=== PATIENT | male | born 1980 | race Caucasian/White ===

== ENCOUNTER 2024-02-05 12:30 | Inpatient (IN) | payer BC, SELFPAY ==
[2024-02-05] VITALS (11 sets, daily range): BP systolic 127–150; BP diastolic 85–104; BMI 28.3
--- NOTE | 2024-02-05 11:39 | EDRN ---
To culture media laboratory assistant
--- NOTE | 2024-02-05 11:40 | ED.GENMED ---
History of Present Illness
General
Chief Complaint: Chest Pain
Source: patient
Time Seen by Provider: 02/05/24 11:40
History of Present Illness
History of Present Illness:
44-year-old male presents to the emergency room complaining of chest pain. Chest pain began around 10 AM. He rates it a 5 out of 10. Patient does have a history of an WA about 9 years ago. Patient admits he is not been taking his medications.
He denies smoking. He does feel mildly short of breath.
Past History
Past History
ED Past Medical History: CAD, HTN, Hypercholesterolemia and WA
Social History
Tobacco: Non-smoker
Alcohol: None
Drug: None
Personal:
Living: with family
Family History
Family History: Early CAD
Phy Exam
Physical Exam
Physical Exam:
General: Awake, Alert, Oriented X3. No acute distress.
Vitals: unremarkable
Head: Atraumatic
Eyes: Pupils equal, EOMI
Throat: Airway intact, no exudates
Neck: Trachea midline
Lungs: Clear and equal b/l
Heart: Regular rate, no murmurs
Abd: Soft, Nontender, No pulsatile mass
Neuro: Nonfocal
Skin: Warm, dry, no rash
Extremities: pulses equal b/l, no edema
Scores
Heart Score for Chest Pain Patients
STEMI patient?: Yes
Course
Orders/Labs/Results
Orders:
Orders
02/05/24 Lunch
Cholesterol Lowering
At Your Request: Full Participation
Does patient need a safe tray?: No
Cholesterol Lowering: Sodium, 2 Gram
02/05/24 11:29
Electrocardiogram (*1) Urgent
Reason for Study: Chest Pain
EKG- Treatment ONCE
02/05/24 11:58
Complete Blood Count/With Diff Urgent
Comprehensive Metabolic Panel Urgent
Prothrombin Time Urgent
Troponin I Urgent
02/05/24 12:19
Admit Patient As Directed
Co-Sign Provider:
Level of Care: Inpatient admission
Assign to:: IVU
Physician / Group: cbc
Diagnosis: STEMI
Reason for Hospitalization: STEMI, RCA PCI
Expected length of stay greater than two midnights?: Yes
ELOS- Estimated Length of Stay in days: 2
I certify the patient meets the requirements for IP care: Yes
Electrocardiogram (*1) Urgent
Reason for Study: Other
Other Reason for Exam: s/p intervention
Comment: cbc
Code Status As Directed
Resuscitation Status: Full Code
CARDIAC REHAB CONSULT Routine
Co-Sign Provider:
Type of Cardiac Rehab Referral: Outpatient
Diagnosis: STEMI
Date of Diagnosis/Surgery: 02/05/24
Referring Provider: Dano Davenport
Acetaminophen [Tylenol] 650 mg PO Q4HPRN PRN
Activity As Directed
Activity Level: Out of Bed- Chair
Comment: bed/chair rest for 2 hours then out of bed ad nnamdi
Dust Brush Assembler Procedure As Directed
Cardiac Cath Procedure: percutaneous coronary intervention
Intake/ Output As Directed
Frequency: Per unit guidelines
Notify MD As Directed
Notify physician if: immediately for chest pain or bleeding from access site(s)
Radial Artery Hemostasis Method As Directed
Instructions:: 3 mL out at 2 hour posts placement of band
3 mL out at 2 1/2 hours post placement of band
3 mL out at 3 hours post placement of band
Off at 3 1/2 hours post placement of band
If any oozing or hemotoma occurs:: re-inflate band and call provider
Site Checks As Directed
Check access site for bleeding/hematoma: Yes
Comment: on arrival, Q15min x4, Q30min x2, Q1 hr x2, Q2 hr x2, Q4 hr or per
protocol
Vascular Checks As Directed
Location: distal to access site - pulse check
Frequency: Other
Comment: on arrival, Q15min x4, Q30min x2, Q1 hr x2, Q2 hr x2, Q4 hr or per protocol
Vital Signs As Directed
Frequency: Other
Additional Instructions:: on arrival, Q15min x4, Q30min x2, Q1 hr x2, Q2 hr x2, then Q4 hr or per unit
protocol
02/05/24 12:20
DX Deep Vein Thrombosis Video Routine
02/05/24 12:27
Case Management Consult ONCE
Case Management Consult: Other
Comment: Brilinta cost
02/05/24 12:29
Potassium Chloride [KCl] 40 meq PO NOW STA
02/05/24 12:30
0.9% Sodium Chloride 1000 ml [Nss] 1,000 ml IV PER PROTOCOL
Infusion rate in mL/kg/hr:: 1.5
Infusion rate in mL/hr:: 150
Duration of infusion (hours):: 5
02/05/24 13:00
Flush (0.9% Sodium Chloride) [Flush (Nss)] See Dose Instructions IV PER PROTOCOL
02/05/24 18:00
Troponin I Q6H
Enoxaparin Sodium [Lovenox] 40 mg SC QPM
02/05/24 20:00
Ticagrelor [Brilinta] 90 mg PO BID
02/05/24 22:00
Ezetimibe [Zetia] 10 mg PO HS
Rosuvastatin Calcium [Crestor] 40 mg PO HS
02/06/24 00:00
Troponin I Q6H
02/06/24 06:00
Echo 2D MMode Color/Doppler IN AM
Reason for Study: STEMI
Comment: Guidera
Electrocardiogram (*1) IN AM
Reason for Study: Other
Other Reason for Exam: s/p intervention
Comment: cbc
Basic Metabolic Panel IN AM
Cardiovascular Evaluation IN AM
Complete Blood Count/No Diff IN AM
Glycohemoglobin (HgbA1c) Routine
Troponin I Q6H
02/06/24 08:00
Aspirin Chewable [Low Strength Aspirin] 81 mg PO DAILY
Lisinopril [Zestril] 5 mg PO DAILY
Metoprolol Xl [Toprol Xl] 50 mg PO DAILY
02/07/24 06:00
Electrocardiogram (*1) IN AM
Reason for Study: Other
Other Reason for Exam: s/p intervention
Comment: cbc
Basic Metabolic Panel IN AM
Complete Blood Count/No Diff IN AM
Abnormal Lab Results
02/05/24 02/05/24 02/05/24
11:56 11:58 12:03
Hgb 12.9 L g/dL
(13.0-18.0)
Hct 38.6 L %
(39.0-52.0)
Absolute Monos (auto) 0.8 H 10^3/uL
(0.1-0.6)
Monocytes % 11.7 H %
(1.7-9.3)
Potassium 3.4 L mmol/L
(3.5-5.1)
Creatinine 0.6 L mg/dL
(0.7-1.3)
Glucose 118 H mg/dl
(70-99)
Troponin I 0.178 H* ng/ml
POC ACT Low Range 195 H Seconds > 397 H Seconds
(116-155) (116-155)
02/05/24 11:58
02/05/24 11:58
Vital Signs
Initial and Last Documented VS:
Initial Vital Signs
Pulse
79
02/05/24 12:30
Last Documented Vital Signs
Temp Pulse Resp BP Pulse Ox
97.5 F 86 18 131/85 100
02/05/24 12:54 02/05/24 13:45 02/05/24 12:54 02/05/24 13:30 02/05/24 12:54
MDM/Problems Addressed
Differential Diagnosis Includes:
Acute WA, chest wall pain, GERD
MDM/Problems Addressed:
EKG shows ST elevation in leads II, III and aVF consistent with an inferior wall WA. STEMI alert called. Patient received aspirin, Brilinta which he chewed and swallowed. 5000 units of heparin given. Dust Brush Assembler ready for the patient and he was
taken immediately to the Dust Brush Assembler after receiving these medications. Case discussed with Dr. Baker who is the construction rigger on-call.
Chronic conditions affecting care: HTN and CAD
Acute Exacerbation and/or Progression of Chronic Illness: CAD
*Pulse Oximetry
Patient hypoxic: no
*EKG
Interpreted by ED Provider?: Yes
Interpretation: abnormal
Heart Rate: 57
Rate: bradycardiac
Rhythm: sinus
Ischemia: ST elevation (II, III, avf)
*Factory Worker Interpretation
Rate: bradycardiac
Interpretation: normal
Rhythm: sinus
*Critical Care Note
Total Time (30-74mins, 75-104mins- exclusive of procedures): 15 min
ED Attending Note
-
Portions of this chart may have been created with voice recognition software.� Occasional wrong word or��sound alike� substitutions may have occurred due to the inherent limitations of voice recognition software.
Discharge Plan
Departure
Patient Disposition: Admit
Date of Disposition: 02/05/24
Time of Disposition: 11:47
Admit to: cath lab tech
Presentation/result/management discussed w/ accepting MD/DO: Hospitalist
Condition: Serious
Discharge Problem:
Acute WA
Interventions
Interventions:
*Risk Screen - Suicide Last Done: 02/05/24 13:27
*ED COVID-19 Vaccine History Last Done: 02/05/24 13:27
*Nursing Disposition Last Done: 02/05/24 12:05
ED- Cardiac Assessment Last Done: 02/05/24 11:32
Discharge Date and Time
Discharge Date/Time: 02/05/24 12:06
[2024-02-05 12:02] LABS: ACT-LR - POC 195 Seconds (116-155)
[2024-02-05 12:09] LABS: % Basophils 0.8 % (0-2); % Eosinophils 1.9 % (0-6); % Immature Granulocytes 0.3 % (0-0.5); % Lymphocytes 25.4 % (20.5-51.1); % Monocytes 11.7 % (1.7-9.3); % Neutrophils 59.9 % (42.2-75.2); Absolute Basophils 0.1 10^3/uL (0-0.2); Absolute Eosinophils 0.1 10^3/uL (0-0.7); Absolute Lymphocytes 1.8 10^3/uL (1.2-3.4); Absolute Monocytes 0.8 10^3/uL (0.1-0.6); Absolute Neutrophils 4.3 10^3/uL (1.4-6.5); Hematocrit 38.6 % (39.0-52.0); Hemoglobin 12.9 g/dL (13.0-18.0); Mean Corp Hgb Conc. 33.4 g/dL (33.0-37.0); Mean Corpuscular Hgb 27.3 pg (27.0-31.0); Mean Corpuscular Volume 81.6 fL (80.0-94.0); Mean Platelet Volume 9.3 fL (7.4-10.4); Nucleated Red Blood Cells % 0 % (-); Platelet Count 247 10^3/uL (130-400); Red Blood Cell Count 4.73 10^6/uL (4.70-6.10); White Blood Cell Count 7.2 10^3/uL (4.8-10.8)
[2024-02-05 12:21] LABS: INR 1.08; PT 13.8 Sec (11.4-14.6)
[2024-02-05 12:22] LABS: ALT (SGPT) 19 U/L (0-50); AST (SGOT) 25 U/L (17-59); Albumin 4.1 g/dl (3.5-5.0); Alkaline Phosphatase 92 U/L (38-126); Blood Urea Nitrogen 13 mg/dl (9-20); Carbon Dioxide 27 mmol/L (22-30); Chloride 105 mmol/L (98-107); Glucose 118 mg/dl (70-99); Potassium 3.4 mmol/L (3.5-5.1); Sodium 137 mmol/L (135-145); Total Bilirubin 0.6 mg/dl (0.2-1.3); Total Protein 7.5 g/dl (6.3-8.2); eGFR > 60.00
--- NOTE | 2024-02-05 12:34 | HPS.HSE ---
Addendum entered and electronically signed by Marcelo Rodriguez MD 02/05/24 13:14:
Patient seen and examined. He presents with substernal chest discomfort for the past [address] elevation myocardial infarction. He has been noncompliant with all medications including aspirin. Emergent angiography demonstrates
thrombotic occlusion of the proximal RCA at the proximal edge of the previously stented segment (2014). Successful revascularization with angioplasty followed by placement of 3.5 x 23 Xience BRENT with amish of SUNG grade III flow. There is a
70% lesion in the distal RCA just proximal to the PDA takeoff. This was not treated but can be stented if he has residual anginal symptoms. I did not wish to treat anything other than the culprit lesion given his history of noncompliance with
necessary antiplatelet therapy.
Original Note:
Family Physician
-
Family Physician: Hoang Hurtado MD
CDY: Frank Davenport MD
Chief Complaint
-
Chest pain
History of Present Illness
44 y/o white male, PMH sig for cardiac arrest with RCA PCI in 2014, and pericarditis in 2016 with patent stent at the time. Now presents to ER with acute onset chest pain starting approx 1 hour prior to arrival. Initial EKG with inferior ST
elevations. Given aspirin 324mg, brilinta 190mg and heparin 4000u and brought emergently to the construction craft laborer. RCA with acute stent thrombosis, s/p angioplasty and BRENT. Pt admits to not taking meds including aspirin for some time and has not been seen in
cardiology office since 2020.
Medical History
Past Medical History
Past Medical History: Reports CAD (Cardiac arrest/WV with RCA PCI (2014)), HTN and Hypercholesterolemia
Additional Past Medical History:
pericarditis (2017)
Past Surgical History: Reports None
Social History
Tobacco: Non-smoker
Alcohol: Occasional
Drug: None
Personal:
Living: With Family
Employment: Employed
Family History
Family History: Early CAD and Hypertension
Allergies / Home Medications
Allergies reflects when Allergies were last updated in [facility].
Home Medications with original date entered in [facility]
Allergy/Medication List:
ALLG: shellfish
MEDS: HE HAS STOPPED TAKING ALL MEDS
aspirin 81mg/daily
escitalopram 10mg/daily
zetia 10mg/daily
lisinopril 5mg/daily
metoprolol succinate 50mg/daily
rosuvastatin 40mg/daily
nitrostat prn CP
Review of Systems
-
History Source: Patient
A 12 point ROS was completed and negative except as noted: Yes
Respiratory: Reports Other (mildly dyspneic)
Cardiac: Reports Chest Pain (03/15)
Physical Exam
Physical Exam
General: Other (Deferred d/t urgent nature of cath)
Laboratory Results
-
02/05/24 11:58
02/05/24 11:58
Laboratory Results
PT 13.8 Sec (11.4-14.6) 02/05/24 11:58
INR 1.08 02/05/24 11:58
Total Bilirubin 0.6 mg/dl (0.2-1.3) 02/05/24 11:58
AST 25 U/L (17-59) 02/05/24 11:58
ALT 19 U/L (0-50) 02/05/24 11:58
Alkaline Phosphatase 92 U/L (38-126) 02/05/24 11:58
Data Reviewed
-
Medical Tests (Nuc Med, Echo, EKG etc): Image Personally Visualized and interpreted, Report Reviewed by me and Discussed with Physician
Lab Data: Labs Reviewed by me
Old Records: Reviewed
Impression/Plan
-
44 y/o white male, PMH sig for cardiac arrest with RCA PCI in 2014, and pericarditis in 2017 with patent stent at the time. Now presents to ER with acute onset chest pain starting approx 1 hour prior to arrival. Initial EKG with inferior ST
elevations. Given aspirin 324mg, brilinta 190mg and heparin 4000u and brought emergently to the construction craft laborer. RCA with acute stent thrombosis, s/p angioplasty and BRENT. Pt admits to not taking meds including aspirin for some time and has not been seen in
cardiology office since 2020.
Last echo 04/2021 with nml LVSF, no WMA, EF 55-60%, no sig valvular disease.
IMPRESSION/PLAN:
Inferior STEMI
Acute RCA stent thrombosis, s/p angioplasty and BRENT
admit IVU/monitor tele
1st trop 0.178- trend troponin to peak
echo in AM
DAPT w/asa, brilinta- CM to check cost
resume metoprolol 50/d, lisinopril 5mg/d
cardiac rehab consult
HLD- check lipid profile
resume rosuvastatin 40/d, zetia 10/d
HTN- monitor trends
Hypokalemia- K 3.4- replaced- check in AM
Elevated glucose- will check HgbA1C in AM
Non compliance- importance of medications/cardiology followup stressed with pt/
[2024-02-05 12:46] LABS: Troponin I 0.178 ng/ml
--- NOTE | 2024-02-05 12:46 | ITS.CL.CATH ---
Correctional Nurse - Catheterization
Cardiac Catheterization
Procedure Report:
CARDIAC CATHETERIZATION REPORT
Date of Procedure: 02/05/2024
Referring: Marty Ely MD ([facility])
Indication: Inferior STEMI of 2 hours duration. Patient with history RCA stent ([facility]) in 2014 and has been noncompliant with aspirin and all other cardiac medications
HEMODYNAMIC DATA
AO: 143/94
LV: 143/17
LEFT VENTRICULOGRAPHY: Inferior akinesis with EF 50%. There is hyperdynamic movement of the noninfarct segments
CORONARY ANGIOGRAPHY
Dominance: Right
Left Main: Normal
LAD: 30% mid LAD stenosis with otherwise trivial luminal irregularities in the LAD system
Circumflex: Mild luminal irregularities
RCA: The RCA is occluded 10 mm distal to its takeoff at the start of the previously stented segment. There is SUNG grade 0 flow distal to the site of occlusion. There is very faint incomplete collateralization of the distal RCA vessels via left
circumflex artery
Angioplasty: At the conclusion the diagnostic study, the patient underwent RCA intervention. Heparin was used for anticoagulation. Since he has not been taking any antiplatelet therapy, we opted to give a double bolus of Integrilin with no
infusion. Brilinta and aspirin were both given in the emergency department. Additional heparin was given as needed to keep the ACT greater than 225. A 6 Macanese JR4 guide catheter was used. A Hi-Torque floppy wire was easily passed through the
occluded proximal RCA and positioned in the distal vessel. Normal flow was restored with a 3.0 x 15 trek inflated to 12 jean within the previously stented segment. There is focal 70% distal RCA stenosis noted. The culprit lesion was then stented
with a 3.5 x 23 Xience BRENT deployed at 17 jean. The angiographic result was outstanding with no residual stenosis and normal SUNG grade III flow to the PDA and posterolateral branches of the RCA. I opted not to post dilate the stent in order to
minimize the chance of distal embolization of thrombus. The final angiographic result was outstanding. There were no procedural complications.
Closure Device: None-the procedure was performed via the right radial artery. The Palmer's test was normal prior to the procedure.
Radiation (mGy): 246
DAP (cm2.Gy): 30.7
Fluoroscopy time: 4.4 minutes
CONCLUSIONS
1: Acute inferior STEMI x 2 hours due to very late stent thrombosis (9 years) in the setting of noncompliance with aspirin
2: Inferior akinesis with EF 50%
3. Single-vessel CAD with proximal RCA in-stent thrombotic occlusion. There is 70% distal RCA stenosis just proximal to the PDA origin
4. Successful angioplasty and stenting of proximal RCA in-stent occlusion with placement of 3.5 x 23 Xience renetta point BRENT
5. Recommend dual antiplatelet therapy for 12 months and continued risk factor modification efforts. The patient and his (who is an ER nurse at ) have been counseled that his infarction is due to noncompliance with aspirin therapy and that
failure to comply with dual antiplatelet therapy for 12 months followed by aspirin monotherapy thereafter would likely result in recurrent stent thrombosis which at times is fatal
Copy to: Dano Davenport MD, Hoang Hurtado MD
Marcelo Rodriguez MD, [facility]
[2024-02-05] MEDS: KCL 40 MEQ PO (12:59)
[2024-02-05] MEDS: NSS 1000 IV (13:00)
--- NOTE | 2024-02-05 13:11 | PTCARENOTE ---
Received patient from the irrigation laborer after stenting of re-stenosed RCA. Oriented to room and plan of care. Radial band in place right wrist, fingers cool but pulse palpable and pulse ox of 100% on RA. at the bedside and updated, call mina in
reach.
[2024-02-05 13:25] LABS: ACT-LR - POC > 397 Seconds (116-155)
--- NOTE | 2024-02-05 14:02 | CM ---
Reviewed chart. Met with Mr. Zhang to review discharge plans. He states prior to admission he resides with his spouse and two children in a two story home with one step to enter. He states he has a full flight of steps to get to bedroom/full
bathroom. He states he has a powder room on the first floor. He states prior to admission he was independent with ambulation and adls. He states he does not have any DME in the home. He states he has a prescription plan and uses [facility] on [address].
Telephone call to his pharmacy benefit,([phone]) to check on co-pay fro Brilinta 90 mg po bid. His co-pay for one month would be $70.00 and for 90 day supply would be $140.00 . He has commercial insurance and can use the $5.00 coupon. Placed
the coupon in his red discharge folder. Telephone all to [facility] on [address] to check if they have Brilinta 90 mg po in stock. [facility] has it in stock. Medical work-up in progress. The discharge plan is to return home with his family when
medically stable.
[2024-02-05] MEDS: LOVENOX 40 MG SC (18:00)
[2024-02-05 18:48] LABS: Troponin I 0.739 ng/ml
--- NOTE | 2024-02-05 19:23 | PTCARENOTE ---
Patient reports no pain, remains in SR on the monitor without ectopy. BP running in the 130's/90's. Patient did not take any of his antihypertensive meds today, notified Sandeep Johnston NP- to continue to monitor and resume meds as scheduled in AM.
[2024-02-05] MEDS: ZETIA 10 MG PO (22:06)
[2024-02-05] MEDS: BRILINTA 90 MG PO (22:06)
[2024-02-05] MEDS: CRESTOR 40 MG PO (22:06)
--- NOTE | 2024-02-05 23:28 | PTCARENOTE ---
R radial dressing CDI- Site eccy around the dressing + pulse 0-10 CP.
[2024-02-06 05:14] VITALS: BP 125/98
[2024-02-06 05:40] LABS: Hematocrit 33.4 % (39.0-52.0); Hemoglobin 11.5 g/dL (13.0-18.0); Mean Corp Hgb Conc. 34.4 g/dL (33.0-37.0); Mean Corpuscular Hgb 27.4 pg (27.0-31.0); Mean Corpuscular Volume 79.5 fL (80.0-94.0); Mean Platelet Volume 9.2 fL (7.4-10.4); Platelet Count 186 10^3/uL (130-400); Red Cell Dist. Width 14.1 % (11.5-14.5); White Blood Cell Count 8.2 10^3/uL (4.8-10.8)
[2024-02-06 06:09] LABS: Blood Urea Nitrogen 10 mg/dl (9-20); Calcium 8.7 mg/dl (8.4-10.2); Carbon Dioxide 24 mmol/L (22-30); Chloride 108 mmol/L (98-107); Estimated Creatinine Clearance > 125 ml/min; Glucose 86 mg/dl (70-99); HDL Cholesterol 36 mg/dl; LDL Cholesterol, Calculated 204 mg/dl; Potassium 3.5 mmol/L (3.5-5.1); Sodium 136 mmol/L (135-145); Total Cholesterol 254 mg/dl (50-199); Triglyceride 70 mg/dl (10-149); Very Low Density Lipoprotein 14 mg/dl (0-30); eGFR > 60.00
--- NOTE | 2024-02-06 07:25 | W.PN.CD ---
Today's Communication / Plan
-
ambulate. shower
Impression / Plan
-
Acute inferior STEMI:
- Peak trop only 2.7
- S/P prox RCA PCI for very late (9yrs) in stent thrombosis. Completely preventable event caused by noncompliance with ASA. He understands this WILL happen again if he does not take meds as prescribed
- No recurrent CP, no CHF, telem with one triplet yesterday
- Ambulate today. OK to shower
- Continue monitoring him. Home tomorrow if does well today
Dyslipidemia
- LDL 204
- Crestor 40. Pt educated his lipids will remain horrific if he does not take statin as diet a minor contributor
Anemia
- Hb 12.9. This appears chronic looking back to 2017
- Will order Fe, TIBC, ferritin and B12 for tomorrow AM
Out pt development intern is Issac
Physical Exam
Vital Signs/Labs
Vital Signs
Temp Pulse Resp BP Pulse Ox
98.1 F 86 18 125/98 98
02/05/24 23:24 02/06/24 05:14 02/05/24 23:24 02/06/24 05:14 02/05/24 23:24
02/05/24 02/06/24 02/07/24
06:59 06:59 06:59
Actual Weight 175 lb 6.044 oz
02/06/24 05:25
02/06/24 05:25
PT 13.8 Sec (11.4-14.6) 02/05/24 11:58
INR 1.08 02/05/24 11:58
Triglycerides 70 mg/dl (10-149) 02/06/24 05:25
LDL Cholesterol, Calc 204 mg/dl 02/06/24 05:25
VLDL Cholesterol, Calc 14 mg/dl (0-30) 02/06/24 05:25
HDL Cholesterol 36 mg/dl 02/06/24 05:25
LAB Results
02/05/24 02/05/24 02/05/24
11:58 18:05 23:08
Troponin I 0.178 H* 0.739 H* D 2.180 H* D
02/06/24
05:25
Troponin I 2.770 H* D
Physical Exam
Constitutional: No acute distress
EENT: Anicteric
Cardiovascular: Rhythm & rate is regular and Murmur/rub/gallop absent
Respiratory: Lungs clear to auscul.
Neuro/Psych: AO x 3 and Motor deficits absent
Other: Cath Site (clean and dry)
Data Reviewed
-
Date of Service: February 06, 2024
[2024-02-06 07:28] VITALS: BP 140/91
[2024-02-06 08:36] LABS: Glycohemoglobin (HgbA1c) 5.3 % (4.0-5.6)
[2024-02-06] MEDS: LOW STRENGTH ASPIRIN 81 MG PO (09:05)
[2024-02-06] MEDS: ZESTRIL 5 MG PO (09:05)
[2024-02-06] MEDS: BRILINTA 90 MG PO ×2 (09:05→19:12)
[2024-02-06] MEDS: TOPROL XL 50 MG PO (09:05)
[2024-02-06 12:00] VITALS: BP 124/81
[2024-02-06 15:36] VITALS: BP 113/70
[2024-02-06] MEDS: LOVENOX 40 MG SC (18:28)
[2024-02-06 19:04] VITALS: BP 102/67
--- NOTE | 2024-02-06 21:57 | PTCARENOTE ---
Pt rec'd at change of shift ambulating in room. No c/o pain. Right radial site with DDI, ecchymotic around puncture site,soft. sinus on telemetry.
[2024-02-06 22:28] VITALS: BP 119/74
[2024-02-06] MEDS: ZETIA 10 MG PO (22:28)
[2024-02-06] MEDS: CRESTOR 40 MG PO (22:28)
[2024-02-07 03:30] VITALS: BP 116/76
[2024-02-07 04:11] LABS: Hematocrit 36.4 % (39.0-52.0); Mean Corpuscular Volume 81.8 fL (80.0-94.0); Mean Platelet Volume 9.4 fL (7.4-10.4); Platelet Count 198 10^3/uL (130-400); Red Blood Cell Count 4.45 10^6/uL (4.70-6.10); Red Cell Dist. Width 14.1 % (11.5-14.5); White Blood Cell Count 7.4 10^3/uL (4.8-10.8)
[2024-02-07 04:39] LABS: Blood Urea Nitrogen 12 mg/dl (9-20); Calcium 9.1 mg/dl (8.4-10.2); Carbon Dioxide 23 mmol/L (22-30); Chloride 107 mmol/L (98-107); Estimated Creatinine Clearance > 125 ml/min; Glucose 81 mg/dl (70-99); Iron 66 ug/dl (49-181); Potassium 3.5 mmol/L (3.5-5.1); Sodium 136 mmol/L (135-145); eGFR > 60.00
[2024-02-07 04:48] LABS: Percent Saturation 27 % (20-50); Total Iron Binding Capacity 243 ug/dl (261-462)
[2024-02-07 05:11] LABS: Ferritin 28.3 ng/ml (17.9-464.0)
[2024-02-07 05:25] LABS: Vitamin B12 424 pg/ml (239-931)
[2024-02-07 07:45] VITALS: BP 138/80
[2024-02-07] MEDS: ZESTRIL 5 MG PO (07:57)
[2024-02-07] MEDS: BRILINTA 90 MG PO (07:57)
[2024-02-07] MEDS: TOPROL XL 50 MG PO (07:57)
[2024-02-07] MEDS: LOW STRENGTH ASPIRIN 81 MG PO (07:57)
--- NOTE | 2024-02-07 08:10 | PTCARENOTE ---
Pt received from carburetor mechanic RN. AAOx3, resting in bed. NSR on mental health professional. VSS. R radial dressing CDI. Site ecchymotic, no hematoma noted. Neurovascular checks WDL. Pt without complaint at this time. Reinforced importance of med compliance s/p
angioplasty and BRENT. Pt verbalized understanding of education. Assessment documented.
--- NOTE | 2024-02-07 08:14 | W.PN.CARDCBS ---
Addendum entered and electronically signed by Dano Davenport MD 02/07/24 08:32:
I saw and examined the patient.
The PLASTIC BUBBLE PACKER's note was reviewed and I agree with the note.
Comment: Tele fine, cath site very good. Reviewed adherence with med rx and followup. Mild LV dysfxn. LV was normal EF by echo 04/2021!! Plan max med rx in next 3 mo and then repeat echo.
Original Note:
Today's Communication / Plan
-
stable for d/c home today
Impression / Plan
-
Acute inferior STEMI:
- Peak trop only 2.7
- S/P prox RCA PCI for very late (9yrs) in stent thrombosis. Completely preventable event caused by noncompliance with ASA. He understands this WILL happen again if he does not take meds as prescribed
- No recurrent CP, no CHF, tele no further ectopy
-Echo EF 40-45%, anteroseptal and inferoseptal HK, mild LVH
- DAPT ASA/Brilinta, resume all prior meds
- cardiac rehab
-Will need f/u Echo in 3-6 mo post reperfusion
-home today
Dyslipidemia
- LDL 204
- Crestor 40 and zetia 10. Pt educated his lipids will remain horrific if he does not take statin as diet a minor contributor
Anemia
- Hb 12.9. This appears chronic looking back to 2017
-MCV low/normal, iron studies normal except TIBC, will follow up with outpt cbc in 3mo
f/u Dr. Davenport in 2-4 weeks
Progress Note - Food Quality Tester
Subjective
Date of Service: February 07, 2024
no cp, sob
Objective
Labs:
02/07/24 03:42
02/07/24 03:42
Labs
Hgb 12.0 g/dL (13.0-18.0) L 02/07/24 03:42
Hct 36.4 % (39.0-52.0) L 02/07/24 03:42
Plt Count 198 10^3/uL (130-400) 02/07/24 03:42
PT 13.8 Sec (11.4-14.6) 02/05/24 11:58
INR 1.08 02/05/24 11:58
Sodium 136 mmol/L (135-145) 02/07/24 03:42
Potassium 3.5 mmol/L (3.5-5.1) 02/07/24 03:42
BUN 12 mg/dl (9-20) 02/07/24 03:42
Creatinine 0.6 mg/dL (0.7-1.3) L 02/07/24 03:42
Glucose 81 mg/dl (70-99) 02/07/24 03:42
Troponins
02/05/24 02/05/24 02/05/24
11:58 18:05 23:08
Troponin I 0.178 H* 0.739 H* D 2.180 H* D
02/06/24 02/06/24
05:25 16:23
Troponin I 2.770 H* D 1.550 H*
Vital Signs and I&O:
Vital Signs
Temp Pulse Resp BP Pulse Ox
97.9 F 67 20 138/80 99
02/07/24 07:43 02/07/24 04:00 02/07/24 07:43 02/07/24 07:57 02/07/24 07:43
Vital Signs
Temp Pulse Resp BP Pulse Ox
97.9 F 67 20 138/80 99
02/07/24 07:43 02/07/24 04:00 02/07/24 07:43 02/07/24 07:57 02/07/24 07:43
Intake & Output
02/05/24 02/06/24 02/07/24 02/08/24
06:59 06:59 06:59 06:59
Intake Total 1470 / 1470
Output Total 0 / 1899
Balance -430 / -430
Physical Exam
Physical Exam
NAD, AOX3
S1, S2, RRR
CTAB, non labored
SNTND Bsx4
R rad site c/d/i
--- NOTE | 2024-02-07 09:01 | W.DS.TRANS ---
DC Summary - Tool Grinder Operator Surface
-
Discharge Instructions:
Discharge Diagnosis/Procedures STEMI, s/p angioplasty and stent to Right
Coronary artery
Diet Low Cholesterol
Driving Restrictions As prior to admission
Bathing Restrictions OK to Shower
Other Services Cardiac Rehab
Instructions:
Stand-Alone Forms: DC Instructions- Cath/EP Lab
Changes to Home Medications: Yes
Discharge Medications:
DC Medications w/original date entered in [facility]
ezetimibe 10 mg tablet (Zetia) 10 mg PO HS High Cholesterol 07/06/17
lisinopril 5 mg tablet 5 mg PO DAILY Blood Pressure 07/06/17
rosuvastatin 40 mg tablet 40 mg PO HS High Cholesterol 07/06/17
metoprolol succinate 50 mg tablet,extended release 24 hr 50 mg PO DAILY #30 tabs 10/23/17
aspirin 81 mg chewable tablet 81 mg PO DAILY Blood Clot Prevention/Tx 02/05/24
nitroglycerin 0.4 mg sublingual tablet (Nitrostat) 0.4 mg sublingual Q5M PRN chest pain #25 tabs 02/06/24
ticagrelor 90 mg tablet (Brilinta) 90 mg PO BID #180 tabs 02/06/24
Home Medication Changes
new to brilinta and nitro, resumed all previous meds he stopped
Pending Results: No
--- NOTE | 2024-02-07 09:32 | CM ---
CM following for DC planning needs.
Plan for DC to home today. There are no identified DC needs.
[2024-02-07 11:48] VITALS: BP 122/69
== END 2024-02-07 12:38 | disposition home or self-care (01) | DRG 321 ==
LOC: IVU 12:30
PROVIDERS: Nurse Practitioner; Nurse Practitioner Adult Health; ADMITTING PHYSICIAN Internal Medicine Cardiovascular Disease; EMERGENCY PHYSICIAN Emergency Medicine
PROC: B2151ZZ Fluoroscopy of Left Heart using Low Osmolar Contrast (ICD-10-PCS; 2024-02-05)
PROC: B2111ZZ Fluoroscopy of Multiple Coronary Arteries using Low Osmolar Contrast (ICD-10-PCS; 2024-02-05)
PROC: 027034Z Dilation of Coronary Artery, One Artery with Drug-eluting Intraluminal Device, Percutaneous Approach (ICD-10-PCS; 2024-02-05)
PROC: 4A023N7 Measurement of Cardiac Sampling and Pressure, Left Heart, Percutaneous Approach (ICD-10-PCS; 2024-02-05)
DX: I97.190 Other postprocedural cardiac functional disturbances following cardiac surgery (principal); I21.A9 Other myocardial infarction type; T82.867A Thrombosis due to cardiac prosthetic devices, implants and grafts, initial encounter; E78.00 Pure hypercholesterolemia, unspecified; I10 Essential (primary) hypertension; I25.10 Atherosclerotic heart disease of native coronary artery without angina pectoris; Y83.1 Surgical operation with implant of artificial internal device as the cause of abnormal reaction of the patient, or of later complication, without mention of misadventure at the time of the procedure; Y71.2 Prosthetic and other implants, materials and accessory cardiovascular devices associated with adverse incidents; D64.9 Anemia, unspecified; E87.6 Hypokalemia; R73.9 Hyperglycemia, unspecified; I25.2 Old myocardial infarction; Z91.199 Patient's noncompliance with other medical treatment and regimen due to unspecified reason; Z91.148 Patient's other noncompliance with medication regimen for other reason; Z95.5 Presence of coronary angioplasty implant and graft; Z82.49 Family history of ischemic heart disease and other diseases of the circulatory system; Z86.79 Personal history of other diseases of the circulatory system
CPT/HCPCS: 80048; 80053; 80061; 82607; 82728; 83036; 83540; 83550; 84484; 85025; 85027; 85347; 85610; 93005; 93306; 93458; 99285; C1725; C1769; C1874; C1894; C9606; J1327; Q9967

== ENCOUNTER 2025-03-11 21:13 | Emergency (ER) | payer BC, SELFPAY ==
[2025-03-11 21:15] VITALS: BP 120/75
[2025-03-11 21:37] LABS: % Basophils 1.1 % (0-2); % Eosinophils 2.2 % (0-6); % Immature Granulocytes 0.2 % (0-0.5); % Lymphocytes 29.7 % (20.5-51.1); % Monocytes 11.7 % (1.7-9.3); % Neutrophils 55.1 % (42.2-75.2); Absolute Basophils 0.1 10^3/uL (0-0.2); Absolute Eosinophils 0.2 10^3/uL (0-0.7); Absolute Lymphocytes 2.6 10^3/uL (1.2-3.4); Absolute Neutrophils 4.9 10^3/uL (1.4-6.5); Hematocrit 43.3 % (39.0-52.0); Hemoglobin 14.5 g/dL (13.0-18.0); Mean Corp Hgb Conc. 33.5 g/dL (33.0-37.0); Mean Corpuscular Hgb 27.7 pg (27.0-31.0); Mean Corpuscular Volume 82.8 fL (80.0-94.0); Mean Platelet Volume 9.4 fL (7.4-10.4); Nucleated Red Blood Cells % 0 % (-); Platelet Count 306 10^3/uL (130-400); Red Blood Cell Count 5.23 10^6/uL (4.70-6.10); Red Cell Dist. Width 14.4 % (11.5-14.5); White Blood Cell Count 8.8 10^3/uL (4.8-10.8)
[2025-03-11] MEDS: ZOFRAN 4 MG IV (21:40)
[2025-03-11] MEDS: NSS 1000 IV ×2 (21:46→22:53)
[2025-03-11] MEDS: TORADOL 15 MG IV (21:46)
[2025-03-11 21:48] LABS: Lactic Acid 1.4 mmol/L (0.7-2.0)
[2025-03-11 21:50] LABS: ALT (SGPT) 23 U/L (0-50); AST (SGOT) 24 U/L (17-59); Albumin 4.9 g/dl (3.5-5.0); Alkaline Phosphatase 95 U/L (38-126); Blood Urea Nitrogen 32 mg/dl (9-20); Calcium 9.8 mg/dl (8.4-10.2); Carbon Dioxide 28 mmol/L (22-30); Chloride 99 mmol/L (98-107); Glucose 135 mg/dl (70-99); Potassium 3.9 mmol/L (3.5-5.1); Sodium 138 mmol/L (135-145); Total Protein 8.2 g/dl (6.3-8.2); eGFR > 60.00
[2025-03-11 21:51] LABS: Lipase 210 U/L (23-300)
[2025-03-11 22:04] VITALS: BMI 28.0
[2025-03-11 22:06] VITALS: BP 128/80
--- NOTE | 2025-03-11 22:32 | ED.GENMED ---
History of Present Illness
General
Chief Complaint: Abdominal Pain
Source: patient and family
Exam Limitations: none
Time Seen by Provider: 03/11/25 22:24
Nursing documentation reviewed up to this point in time: agreed with
History of Present Illness
History of Present Illness:
This a pleasant 45-year-old male presents with left-sided flank pain that began approximately 8 PM tonight. Approxi-1/2 hours prior to arrival he felt this sharp pain that was reminiscent of previous kidney stone. He did have some nausea
associated with the increased pain. Denies fever, chills, chest pain, or shortness of breath. 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
Vital signs are stable. Patient not hypoxic
Nursing note reviewed. I agree with nursing documentation up to this point in time.
Home Meds and allergies reviewed.
NUMBER AND COMPLEXITY OF PROBLEMS ADDRESSED AT THE ENCOUNTER
� Chronic conditions affecting care: Hypertension, hyperlipidemia, previous VT, pericarditis, kidney stones
� Acute Exacerbation and/or Progression of Chronic Illness:
� Differential Diagnosis includes: Kidney stone, colitis, UTI
AMOUNT AND/OR COMPLEXITY OF DATA TO BE REVIEWED AND ANALYZED
I performed an independent evaluation of the following and my interpretation is:
EKG: EKG shows sinus bradycardia rate of 47 with normal intervals, normal axis. No evidence of acute ischemia present. When compared with previous EKG dated February 07, 2024, there is improvement with overall morphology.
Pulse Ox: Not Hypoxic, 99% on room air
Bread Dough Mixer: Sinus Rhythm rate of [address] IMPRESSION:
1. MILD LEFT HYDROURETERONEPHROSIS secondary to a 3 mm partially obstructing calculus in the distal left ureter.
2. 5 mm nonobstructing left lower pole intrarenal calculus.
3. Moderate calcific atherosclerotic plaque in the abdominal aorta.
4. 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
5. 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
X-rays:
Ultrasound:
Laboratory Studies:
Other:
Review of other/old records:
Clinical information was obtained by an independent historian:
Prescriptions/Medications Considered but not given:
Further testing considered but not performed:
RISK OF COMPLICATIONS AND/OR MORBIDITY OR MORTALITY OF PATIENT MANAGEMENT
Social determinants of health affecting care: Good Social Support
Discussion with other providers:
Escalation of care including admission/observation vs risk of discharge considered: After being observed in the emergency department, patient is
CRITICAL CARE NOTE:
Total Time (exclusive of procedures):
Update:
Past History
Past History
ED Past Medical History: CAD, HTN, Hypercholesterolemia and VT
Social History
Tobacco: Non-smoker
Alcohol: None
Drug: None
Personal:
Living: with family
Family History
Family History: Early CAD
Phy Exam
General Physical Exam
General Presentation: well appearing and mild distress (After pain medicine)
General Skin: warm and dry
General Habitus: normal
General Mental: alert
General Hydration: appears well hydrated
ENT Exam
ENT Exam: EOMI, pharynx normal, neck supple and normocephalic
Eye Exam
Eye Exam: PERRL, cornea clear and conjunctiva normal
Cardiovascular Exam
Cardiovascular Exam: regular rate/rhythm, no edema, no murmur and normal peripheral pulses
Pulmonary Exam
Pulmonary Exam: lungs clear, no respiratory distress, no rales, no crackles, no rhonchi, no stridor, no wheezing and no cough
Gastrointestinal Exam
Gastrointestinal Exam: normal bowel sounds, non tender, soft, no organomegaly, no pulsatile mass and non distended
Neurological Exam
Neurological Exam: alert, oriented x3, no motor deficits and speech normal
Musculoskeletal Exam
Musculoskeletal Exam: full ROM, no edema and back tenderness (Left CVA tenderness)
Skin Exam
Skin Exam: normal color, warm/dry, no rash and no petechia
Psychiatric Exam
Psychiatric Exam: normal mood/affect
Course
Orders/Labs/Results
Orders:
Orders
03/11/25 21:20
Electrocardiogram (*1) Urgent
Reason for Study: Bradycardia / Tachycardia
EKG- Treatment ONCE
03/11/25 21:29
Complete Blood Count/With Diff Urgent
Comprehensive Metabolic Panel Urgent
Lipase Urgent
03/11/25 21:31
Lactate Level [Lactic Acid] Urgent
03/11/25 21:36
Ondansetron Injectable [Zofran] 4 mg .ROUTE .STK-MED ONE
03/11/25 21:39
Ondansetron Injectable [Zofran] 4 mg IV NOW STA
03/11/25 21:41
Ketorolac [Toradol] 15 mg .ROUTE .STK-MED ONE
03/11/25 21:42
CT Abd/pel Without Iv Or Oral Urgent
Comment:
Reason For Exam: left lower quad pain
03/11/25 21:45
Ketorolac [Toradol] 15 mg IV NOW STA
03/11/25 21:46
0.9% Sodium Chloride 1000 ml [Nss] 1,000 ml IV BOLUS
03/11/25 22:45
Morphine Sulfate 4 mg IV NOW STA
03/11/25 22:48
0.9% Sodium Chloride 1000 ml [Nss] 1,000 ml IV BOLUS
03/11/25 23:22
UA Reflex to Culture [Urinalysis Reflex To Culture] Urgent
Date Specimen was Collected: 03/11/25
Time Specimen was Collected: 21:20
Urine Microscopic Reflex Cult Urgent
03/11/25 23:47
Tamsulosin [Flomax] 0.4 mg PO NOW STA
Abnormal Lab Results
03/11/25 03/11/25
21:29 23:22
Absolute Monos (auto) 1.0 H 10^3/uL
(0.1-0.6)
Monocytes % 11.7 H %
(1.7-9.3)
BUN 32 H mg/dl
(9-20)
Glucose 135 H mg/dl
(70-99)
Urine Ketones 3+ A
(Negative)
Ur Occult Blood Reflex 4+ A
(Negative)
Urine RBC 21-25 A /HPF
(0-2)
Urine Bacteria (Reflex) Few A
(Negative)
Urine Albumin (Reflex) 2+ A
(Neg - Trace)
03/11/25 21:29
03/11/25 21:29
Vital Signs
Initial and Last Documented VS:
Initial Vital Signs
Temp Pulse Resp BP Pulse Ox
97.7 F 50 16 120/75 99
03/11/25 21:15 03/11/25 21:15 03/11/25 21:15 03/11/25 21:15 03/11/25 21:15
Last Documented Vital Signs
Temp Pulse Resp BP Pulse Ox
97.9 F 65 15 115/77 93
03/11/25 22:08 03/11/25 23:00 03/11/25 22:45 03/11/25 23:00 03/11/25 23:00
*Critical Care Note
Total Time (30-74mins, 75-104mins- exclusive of procedures): Not Applicable
ED Attending Note
-
Portions of this chart may have been created with voice recognition software.� Occasional wrong word or��sound alike� substitutions may have occurred due to the inherent limitations of voice recognition software.
Discharge Plan
Departure
Patient Disposition: Home (Routine Discharge)
Date of Disposition: 03/11/25
Time of Disposition: 23:49
Patient with high blood pressure during this ER visit?: No
Condition: Good
Discharge Problem:
Kidney stone on left side
Instructions: Kidney Stones (DC), How to Strain Your Urine
Prescriptions:
New
tamsulosin [Flomax] 0.4 mg capsule
0.4 mg PO DAILY Qty: 7 0RF
oxycodone-acetaminophen [Percocet] 5-325 mg tablet
1 tab PO Q6HPRN PRN (Reason: pain) Qty: 10 0RF
No Action
lisinopril 5 MG tablet
5 mg PO DAILY
ezetimibe [Zetia] 10 MG tablet
10 mg PO HS
rosuvastatin 40 MG tablet
40 mg PO HS
metoprolol succinate 50 MG tablet extended release 24 hr
50 mg PO DAILY Qty: 30 0RF
aspirin 81 mg Tablet,Chewable
81 mg PO DAILY
Brilinta 90 mg Tablet
90 mg PO BID Qty: 180 5RF
nitroglycerin [Nitrostat] 0.4 mg Tablet, Sublingual
0.4 mg SUBLINGUAL Q5M PRN (Reason: chest pain) Qty: 25 5RF
Referrals:
NONE,* [Active] -
Otto Lemos MD [Active] -
Activity Restrictions/Additional Instructions:
Your prescriptions were sent electronically to the pharmacy that you specified.
Thank You for choosing [facility].
It was a pleasure meeting you and taking part in your care. We hope for your continued healing and wellness.
Please read discharge instructions in their entirety. However, they are for general education and may not describe your exact diagnosis at discharge. Information on your ER visit and medical conditions were discussed with you along with appropriate
follow up information...
If indicated, please take your medications as instructed and indicated on discharge paperwork.
Please schedule a follow up appointment as directed. Call to schedule an appointment
Please return to the emergency department with ANY change in, persisting, or worsening of symptoms. If any of your symptoms do not improve, or persist, or become more severe within 6-12 hours, please return to the emergency department for further
care.
Please return to the emergency department if you develop a headache, neck pain/stiffness, fever greater than 100.4F, chest pain, shortness of breath, persistent nausea, vomiting, slurred speech, difficulty walking, numbness/tingling, weakness, signs
of infection or any other symptoms that are worrisome to you.
If you have any questions or concerns please do not hesitate to call the Hospital at or E-mail me directly at [email or web address]
Interventions
Interventions:
*Risk Screen - Suicide Last Done: 03/11/25 21:15
*General Assessment Last Done: 03/11/25 21:15
*Neglect/Abuse Screening Last Done: 03/11/25 21:15
*ED- Fall Risk Assessment Last Done: 03/11/25 21:15
*ED COVID-19 Vaccine History Last Done: 03/11/25 21:15
ZF-Loptwp-[id number] Assessment Last Done: 03/11/25 22:04
Discharge Date and Time
Print Language: IVORIAN
[2025-03-11] MEDS: MORPHINE SULFATE 4 MG IV (22:53)
[2025-03-11 23:00] VITALS: BP 115/77
[2025-03-11 23:18] VITALS: BP 132/84
[2025-03-11 23:27] LABS: Urine Albumin 2+ (Neg - Trace); Urine Bilirubin Negative (Negative); Urine Character Clear (Clear); Urine Color Yellow; Urine Glucose Negative (Negative); Urine Ketone 3+ (Negative); Urine Leukocyte Negative (Negative); Urine Nitrite Negative (Negative); Urine Occult Blood 4+ (Negative); Urine Specific Gravity 1.025 (<1.030); Urine Urobilinogen Negative (Neg - 1+)
[2025-03-11 23:39] LABS: Urine Squamous Cell 0-2 /LPF (Few); Urine Uric Acid Crystals Present
[2025-03-11 23:40] LABS: Urine Bacteria Few (Negative); Urine Red Blood Cell 21-25 /HPF (0-2)
[2025-03-11] MEDS: FLOMAX 0.4 MG PO (23:59)
[2025-03-12] VITALS: BP 123/90
== END 2025-03-12 00:05 | disposition home or self-care (01) ==
LOC: EMR 21:13
PROVIDERS: Emergency Medicine; EMERGENCY PHYSICIAN Student in an Organized Health Care Education/Training Program; FAMILY PHYSICIAN Family Medicine
DX: N13.2 Hydronephrosis with renal and ureteral calculous obstruction (principal); I10 Essential (primary) hypertension; E78.00 Pure hypercholesterolemia, unspecified; I25.2 Old myocardial infarction; I25.10 Atherosclerotic heart disease of native coronary artery without angina pectoris; Z86.74 Personal history of sudden cardiac arrest
CPT/HCPCS: 96374; 96375; 96361; 99284; 74176; 80053; 81003; 81015; 83605; 83690; 85025; 93005

== ENCOUNTER → 2025-06-26 06:37 | Outpatient (REF) | payer BC, SELFPAY ==
[2025-06-26 07:59] LABS: ALT (SGPT) 42 U/L (0-50); AST (SGOT) 40 U/L (17-59); Albumin 3.9 g/dl (3.5-5.0); Alkaline Phosphatase 70 U/L (38-126); Blood Urea Nitrogen 17 mg/dl (9-20); Calcium 8.8 mg/dl (8.4-10.2); Carbon Dioxide 29 mmol/L (22-30); Chloride 109 mmol/L (98-107); Glucose 83 mg/dl (70-99); HDL Cholesterol 33 mg/dl; LDL Cholesterol, Calculated 68 mg/dl; Potassium 4.3 mmol/L (3.5-5.1); Sodium 141 mmol/L (135-145); Total Protein 6.7 g/dl (6.3-8.2); Very Low Density Lipoprotein 11 mg/dl (0-30); eGFR > 60.00
== END ==
LOC: REG 06:37
PROVIDERS: ATTENDING PHYSICIAN Internal Medicine Cardiovascular Disease; FAMILY PHYSICIAN Family Medicine
DX: I25.10 Atherosclerotic heart disease of native coronary artery without angina pectoris (principal); E78.2 Mixed hyperlipidemia; I25.2 Old myocardial infarction
CPT/HCPCS: 36415; 80053; 80061

== ENCOUNTER → 2025-07-04 09:17 | Outpatient (REF) | payer BC, SELFPAY | LOC: RCS 09:17 | PROVIDERS: ATTENDING PHYSICIAN Internal Medicine Cardiovascular Disease; FAMILY PHYSICIAN Family Medicine | DX: I25.10 Atherosclerotic heart disease of native coronary artery without angina pectoris (principal); I25.2 Old myocardial infarction | CPT/HCPCS: 93306 ==

== ENCOUNTER → 2025-08-21 06:30 | Outpatient (REF) | payer BC, SELFPAY ==
[2025-08-21 07:21] LABS: Hematocrit 38.0 % (39.0-52.0); Hemoglobin 11.8 g/dL (13.0-18.0); Mean Corp Hgb Conc. 31.1 g/dL (33.0-37.0); Mean Corpuscular Volume 85.2 fL (80.0-94.0); Nucleated Red Blood Cells % 0 % (-); Platelet Count 240 10^3/uL (130-400); Red Cell Dist. Width 13.9 % (11.5-14.5)
[2025-08-21 07:36] LABS: Blood Urea Nitrogen 20 mg/dl (9-20); Calcium 9.1 mg/dl (8.4-10.2); Carbon Dioxide 26 mmol/L (22-30); Chloride 108 mmol/L (98-107); Glucose 83 mg/dl (70-99); Potassium 4.2 mmol/L (3.5-5.1); Sodium 140 mmol/L (135-145); eGFR > 60.00
== END ==
LOC: RCS 06:30
PROVIDERS: ATTENDING PHYSICIAN Orthopaedic Surgery; FAMILY PHYSICIAN Family Medicine
DX: Z01.818 Encounter for other preprocedural examination (principal)
CPT/HCPCS: 36415; 80048; 85025; 93005

== ENCOUNTER → 2025-09-22 10:05 | Outpatient (REF) | payer BC, SELFPAY ==
[2025-09-22 12:15] LABS: Iron 103 ug/dl (49-181)
[2025-09-22 12:25] LABS: Total Iron Binding Capacity 379 ug/dl (261-462)
[2025-09-22 12:31] LABS: Ferritin 18.7 ng/ml (17.9-464.0)
[2025-09-22 13:02] LABS: Folate 12.1 ng/ml (2.76-20); Vitamin B12 531 pg/ml (239-931)
== END ==
LOC: REG 10:05
PROVIDERS: ATTENDING PHYSICIAN Internal Medicine Gastroenterology; FAMILY PHYSICIAN Family Medicine
DX: D64.9 Anemia, unspecified (principal)
CPT/HCPCS: 36415; 82607; 82728; 82746; 83540; 83550

== ENCOUNTER 2025-10-21 06:19 | Day surgery (SDC) | payer BC, SELFPAY | END 2025-10-21 12:22 | disposition home or self-care (01) | LOC: GI 06:19 | PROVIDERS: ATTENDING PHYSICIAN Internal Medicine Gastroenterology | DX: Z12.11 Encounter for screening for malignant neoplasm of colon (principal); K64.8 Other hemorrhoids | CPT/HCPCS: G0121 ==